=== PATIENT | male | born 1985 | race Caucasian/White ===

== ENCOUNTER 2016-11-01 01:03 | Emergency (ER) | payer MEDICAID ==
[2016-11-01] MEDS ORDERED: OPTIRAY 350 100 ML VIAL HMH IV ONE (01:04)
[2016-11-01] MEDS ORDERED: KETOROLAC 30 MG/ML VIAL ONE (01:36)
[2016-11-01] MEDS ORDERED: ED CLINDAMYCIN PREMIX 50 ML IV ONE (01:36)
[2016-11-01] MEDS ORDERED: humuLIN REG INSULIN ONE (02:35)
[2016-11-01] MEDS ORDERED: LIDOCAINE/EPI 1% MDV 20 ML ONE (03:24)
[2016-11-01] MEDS ORDERED: DIPHENHYDRAMINE 50 MG/ML VIAL ONE (04:06)
[2016-11-01] MEDS ORDERED: METOCLOPRAMIDE 10 MG/2 ML VIAL ONE (04:06)
[2016-11-01] MEDS ORDERED: SODIUM CHLORIDE 0.9% 1,000 ML ONE (04:21)
[2016-11-01] MEDS ORDERED: ACETAMINOPHEN 325 MG TAB ONE (04:22)
== END 2016-11-01 05:45 | disposition home or self-care (01) ==
LOC: ER 01:03
CPT/HCPCS: 36415; 70491; 80053; 82947; 85025; 96361; 96365; 96372; 96375

== ENCOUNTER 2016-11-05 16:30 | Emergency (ER) | payer MEDICAID ==
[2016-11-05] MEDS ORDERED: DILAUDID 1 MG/ML AMP ONE (18:30)
[2016-11-05] MEDS ORDERED: SODIUM CHLORIDE 0.9% 1,000 ML ONE (18:31)
[2016-11-05] MEDS ORDERED: SODIUM CHLORIDE 0.9% 100 ML IV ONE (18:31)
[2016-11-05] MEDS ORDERED: PIPER/TAZO 3.375 GM PYXIS ONE (18:31)
[2016-11-05] MEDS ORDERED: ONDANSETRON 4 MG VIAL ONE (18:31)
== END 2016-11-05 19:01 | disposition other institution (70) ==
LOC: ER 16:30
DX: L03.221 Cellulitis of neck (principal); K12.2 Cellulitis and abscess of mouth
CPT/HCPCS: 36415; 80053; 82947; 83605; 85025; 96365; 96375